=== PATIENT | male | born 1970 | race Caucasian/White ===

== ENCOUNTER 2022-09-14 09:06 | Outpatient (CLI) | payer OTHER, SELFPAY ==
--- NOTE | ~2022-09-14 | XR_ITS ---
XR cervical spine 4-5V 09/14/2022 09:37 Indication: Cervicalgia Procedure: 4 views of the cervical spine Comparison: No prior studies for comparison. Findings: Straightening of cervical lordosis. There is mild degenerative disc disease at C5-6 and C6- 7. There is multilevel facet hypertrophy with mild degenerative spondylolisthesis at C3-4. Odontoid p rocess within normal limits. No prevertebral soft tissue abnormality. Lateral masses normally aligned . Lung apices are normal. Impression: 1: Mild-moderate cervical spondylosis. Reviewed, dictated and finalized at location B. [employer]OR ADVERTISING Impression: 1: Mild-moderate cervical spondylosis.
== END 2022-09-14 09:07 | disposition home or self-care (01) ==
LOC: ANHIMG 09:11
PROVIDERS: PCP Family Medicine; Visit Provider Family Medicine
DX: M47.892 Other spondylosis, cervical region (principal)
CPT/HCPCS: 72050